=== PATIENT | male | born 1995 | race Caucasian/White ===

== ENCOUNTER 2021-08-22 11:43 | Emergency (ER) | payer SELFPAY ==
[~2021-08-22] VITALS: Ht 175.3 cm; Wt 73.0 kg
[2021-08-22] MEDS ORDERED: MORPHINE SULFATE 4 MG/ML CPJ (NOT FOR IM USE) IV STA ×2 (11:46→13:39)
[2021-08-22] MEDS ORDERED: ONDANSETRON HCL 4MG/2ML INJ IV STA ×2 (11:46→13:39)
[2021-08-22] MEDS ORDERED: SODIUM CHLORIDE 0.9% 1,000 ML IV ONE (12:00)
[2021-08-22] MEDS ORDERED: ETOMIDATE 2MG/ML 10ML VIAL IV ONE ×2 (13:00→15:15)
[2021-08-22] MEDS ORDERED: MORPHINE SULFATE 4 MG/ML CPJ (NOT FOR IM USE) IV SCH (13:15)
[2021-08-22] MEDS ORDERED: ONDANSETRON HCL 4MG/2ML INJ IV SCH (13:15)
[2021-08-22] MEDS ORDERED: MORPHINE SULFATE 10 MG/ML CPJ IV ONE (14:15)
[2021-08-22 14:38] VITALS: BP 142/97
[2021-08-22] MEDS ORDERED: PROPOFOL 200MG/20ML VIAL IV ONE (15:45)
[2021-08-22] MEDS ORDERED: HYDR-4001 MT (16:11)
[2021-08-22] MEDS ORDERED: IBUP-2030 MT (16:11)
== END 2021-08-22 18:05 | disposition home or self-care (01) ==
LOC: ER 12:18 → CANBEDREQ 20:53
DX: S52.122A Displaced fracture of head of left radius, initial encounter for closed fracture (principal); M25.422 Effusion, left elbow; W17.89XA Other fall from one level to another, initial encounter; Y93.89 Activity, other specified; Y99.0 Civilian activity done for income or pay; Y92.89 Other specified places as the place of occurrence of the external cause
CPT/HCPCS: 73070; 73080; 73090; 73130; 96361; 96374; 96375; 96376; 99152; 99285; J2270; J2405; J2704; J3490; J7030